=== PATIENT | male | born 1940 | race Two or more races ===

== ENCOUNTER 2023-01-09 16:15 | Emergency (ER) | payer OTHER ==
[~2023-01-09] VITALS: Ht 177.8 cm; Wt 82.0 kg
[2023-01-09 16:19] VITALS: O2SAT 100
[2023-01-09 17:58] LABS: BASOPHILS % 0.5 % (0.0-2.0); EOSINOPHILS % 1.3 % (0.0-5.0); HEMATOCRIT. 42.4 % (42.0-52.0); LYMPHOCYTES % 19.6 % (20.0-50.0); MEAN CORPUSCULAR VOLUME 93.5 fL (80.0-94.0); MEAN PLATELET VOLUME 7.7 fl (7.4-10.4); MONOCYTES % 8.1 % (2.0-8.0); NEUTROPHILS % 70.5 % (40.0-76.0); PLATELET 278 x1000/uL (130-400); RED BLOOD CELL COUNT 4.53 mill/uL (4.7-6.1); RED CELL DISTRIBUTION WIDTH 13.1 % (11.6-14.6)
[2023-01-09 18:05] LABS: CHLORIDE 110 mEq/L (98-107)
[2023-01-09 19:19] VITALS: BP 149/74; PULSE 75; RESP 16
== END 2023-01-09 20:22 | disposition home or self-care (01) ==
LOC: ER 16:15
DX: R06.00 Dyspnea, unspecified (principal); R00.2 Palpitations; R06.02 Shortness of breath
CPT/HCPCS: 36415; 71045; 80053; 83880; 84484; 85025; 85379; 93005; 99285